=== PATIENT | male | born 1985 | race Caucasian/White ===

== ENCOUNTER 2021-04-09 12:25 | Emergency (ER) | payer OTHER ==
[~2021-04-09] VITALS: Ht 182.9 cm; Wt 63.5 kg
[~2021-04-09 12:25] MED LIST: IBUPROFEN 600600 M1 PO
[2021-04-09] MEDS ORDERED: CEPHALEXIN500 MG PO (14:20)
[2021-04-09 14:45] VITALS: BP 117/78
== END 2021-04-09 14:55 | disposition home or self-care (01) ==
LOC: ER 12:25
DX: S61.217A Laceration without foreign body of left little finger without damage to nail, initial encounter (principal); R55 Syncope and collapse; W23.0XXA Caught, crushed, jammed, or pinched between moving objects, initial encounter; Y93.89 Activity, other specified; Y92.89 Other specified places as the place of occurrence of the external cause; Y99.8 Other external cause status

== ENCOUNTER 2021-04-21 09:11 | Emergency (ER) | payer OTHER ==
[~2021-04-21] VITALS: Ht 182.9 cm; Wt 68.0 kg
[~2021-04-21 09:11] MED LIST changes: +CEPHALEXIN500 MG PO
[2021-04-21] MEDS ORDERED: HYDROCODON-ACE1 EAC7 PO (10:46)
[2021-04-21 11:00] VITALS: BP 119/86
== END 2021-04-21 11:00 | disposition home or self-care (01) ==
LOC: ER 09:11
DX: S62.362A Nondisplaced fracture of neck of third metacarpal bone, right hand, initial encounter for closed fracture (principal); F17.210 Nicotine dependence, cigarettes, uncomplicated; W01.0XXA Fall on same level from slipping, tripping and stumbling without subsequent striking against object, initial encounter; Y93.89 Activity, other specified; Y92.89 Other specified places as the place of occurrence of the external cause; Y99.9 Unspecified external cause status

== ENCOUNTER 2021-06-08 14:39 | Emergency (ER) | payer OTHER ==
[~2021-06-08] VITALS: Ht 193 cm; Wt 68.0 kg
[~2021-06-08 14:39] MED LIST changes: +HYDROCODON-ACE1 EAC7 PO
[2021-06-08 17:07] VITALS: BP 105/72
[2021-06-08] MEDS ORDERED: NORCO 10-325 T1 EACH PO (17:10)
[2021-06-08] MEDS ORDERED: CEPHALEXIN500 MG PO (17:10)
== END 2021-06-08 17:07 | disposition home or self-care (01) ==
LOC: ER 14:39
DX: S62.637B Displaced fracture of distal phalanx of left little finger, initial encounter for open fracture (principal); S61.301A Unspecified open wound of left index finger with damage to nail, initial encounter; F32.9 Major depressive disorder, single episode, unspecified; F17.210 Nicotine dependence, cigarettes, uncomplicated; W40.8XXA Explosion of other specified explosive materials, initial encounter; Y93.89 Activity, other specified; Y92.89 Other specified places as the place of occurrence of the external cause; Y99.0 Civilian activity done for income or pay